=== PATIENT | female | born 1965 | race Caucasian/White ===

== ENCOUNTER → 2019-06-16 | Outpatient (CLI) | payer OTHER ==
[2019-06-18 15:07] LABS: HPV 16 Negative (Negative); HPV 18 Negative (Negative); HPV OTHER HR TYPES Negative (Negative)
== END | disposition home or self-care (01) ==
LOC: LAB 20:06 → LAB SHORT 20:06
PROVIDERS: Obstetrics & Gynecology Gynecology
DX: Z12.4 Encounter for screening for malignant neoplasm of cervix (principal)
CPT/HCPCS: 87624; G0123

== ENCOUNTER → 2024-04-26 | Outpatient (CLI) | payer OTHER | LOC: LAB SHORT 08:07 → LAB 08:07 | DX: L57.0 Actinic keratosis (principal) | CPT/HCPCS: 88305 ==

== ENCOUNTER → 2025-03-23 | Outpatient (CLI) | payer OTHER ==
[2025-03-30 21:44] LABS: OVA AND PARASITE,FECAL INTERP Negative (Negative)
== END | disposition home or self-care (01) ==
LOC: LAB 16:55 → LAB SHORT 16:55
PROVIDERS: Family Medicine
DX: R10.84 Generalized abdominal pain (principal); R19.5 Other fecal abnormalities
CPT/HCPCS: 87177; 87209

== ENCOUNTER → 2025-04-01 | Outpatient (CLI) | payer OTHER ==
[2025-04-07 00:26] LABS: OVA AND PARASITE,FECAL INTERP Negative (Negative)
== END | disposition home or self-care (01) ==
LOC: LAB 07:35 → LAB SHORT 07:35
PROVIDERS: Family Medicine
DX: R19.5 Other fecal abnormalities (principal); R10.84 Generalized abdominal pain
CPT/HCPCS: 87177; 87209

== ENCOUNTER → 2025-05-27 | Outpatient (CLI) | payer OTHER ==
[2025-05-31 21:38] LABS: OVA AND PARASITE,FECAL INTERP Negative (Negative)
== END | disposition home or self-care (01) ==
LOC: LAB 08:05 → LAB SHORT 08:05
PROVIDERS: Family Medicine
DX: R19.5 Other fecal abnormalities (principal)
CPT/HCPCS: 87177; 87209